=== PATIENT | female | born 1945 | race Caucasian/White ===

== ENCOUNTER 2023-01-06 10:03 | Outpatient (RCR) | payer MEDICARE, OTHER, SELFPAY ==
[2023-01-06 12:25] LABS: Basophils Absolute Auto 0.02 K/uL (0.00-0.30); Basophils Percent Auto 0.3 % (0.0-3.0); Eosinophils Absolute Auto 0.09 K/uL (0.00-0.50); Eosinophils Percent Auto 1.4 % (0.0-7.0); Hematocrit 42.1 % (33.0-51.0); Lymphocytes Percent Auto 17.6 % (20-44); Mean Corpuscular HGB Conc 33 gm/dL (32-36); Mean Corpuscular Hemoglobin 28 pg (26-34); Mean Corpuscular Volume 85 fL (80-100); Monocytes Percent Auto 9.3 % (0.0-11.0); Neutrophils Absolute Auto 4.54 K/uL (1.7-7.0); Neutrophils Percent Auto 71.4 % (42.0-72.0); Platelet Count* 335 K/uL (140-440); RDW Coefficient of Variation % 14.9 % (11.5-15.5); Red Blood Count 4.94 m/uL (4.00-5.20); White Blood Count* 6.36 K/uL (4.50-11.00)
[2023-01-06 12:31] LABS: Slide Review Reflex No
[2023-01-06 12:39] LABS: Albumin* 3.9 g/dL (3.3-5.0); Chloride* 100 mmol/L (96-114)
[2023-01-06 12:40] LABS: Potassium* 3.9 mmol/L (3.6-5.1); Sodium* 128 mmol/L (135-149)
[2023-01-06 12:42] LABS: Alkaline Phosphatase* 64 U/L (40-150); Aspartate Amino Transferase* 25 U/L (12-35); Bilirubin Total* 0.4 mg/dL (0.1-1.5); Blood Urea Nitrogen* 25 mg/dL (7-30); Carbon Dioxide* 21 mmol/L (20-32); Creatinine* 0.4 mg/dL (0.5-1.5); Est. Creatinine Clearance* 41.33; Estimated Glomerular Filt Rate 103 ml/min
[2023-01-06 12:43] LABS: Alanine Aminotransferase* 20 U/L (4-35); Calcium* 9.2 mg/dL (8.4-10.6); Glucose* 104 mg/dL (60-115)
[2023-01-07 10:42] LABS: Cancer Antigen 125 88 U/mL (<=38)
--- NOTE | 2023-01-07 14:34 | URNOTE ---
Received request for prior authorization for Carboplatin (J9045), Paclitaxel (J9267), Neulasta ([id number]), Fosaprepitant([id number]) and Aloxi ([id number]). Pt has medicare. Prior authorization is not required as services are based on medical necessity and follow medicare guidelines.
--- NOTE | 2023-01-23 10:29 | PC.NURSE ---
Per BRITT Winters, pt declining treatment. Follow-up scheduled in February,.
--- NOTE | 2023-02-19 15:03 | ONC.NURNOTE ---
Addendum entered by Vita Blancas RN 02/20/23 11:51: Discussed this patient via email with Dr. Fitzpatrick. Patient notes that she had a CT scan in [place] in January and has received these results from Urology and the ER in [place]. Patient would prefer to wait until the new year to have the next scan, and have a telehealth visit from home following this. Patient is aware that Dr. Fitzpatrick will go over this with nursing on Friday and someone will contact her with decision. Original Note: Patient called wondering about switching to a telehealth visit as this is easier for her to hear the provider. She would like it so that she can stay at home and she is called. Looking through notes, it appears that patient declined chemotherapy and was told to come back in February. She states that she has not changed her mind in regard to chemotherapy and is feeling the same. She was under the understanding that this visit was to order next scan, that she wants completed in [place]. Nursing to ask provider if anything needs to be done prior to visit in February. Patient notes that she does not want a CT scan done soon, and that she is seeing Palliative care 03/07/2023. Nursing to call patient with plan.
== END 2023-07-05 23:59 | disposition home or self-care (01) ==
LOC: CCIC 10:03
PROVIDERS: PCP Nurse Practitioner Family; Referring Provider Nurse Practitioner Family; Visit Provider Internal Medicine Hematology & Oncology
DX: C54.9 Malignant neoplasm of corpus uteri, unspecified (principal); C57.9 Malignant neoplasm of female genital organ, unspecified; Z86.718 Personal history of other venous thrombosis and embolism; Z79.01 Long term (current) use of anticoagulants; I25.10 Atherosclerotic heart disease of native coronary artery without angina pectoris; H91.90 Unspecified hearing loss, unspecified ear
CPT/HCPCS: 36415; 80053; 85025; 86304; 99202; 99205